=== PATIENT | male | born 1940 | race African-American/Black ===

== ENCOUNTER 2019-07-29 16:11 | Emergency (ER) | payer MEDICARE, OTHER ==
[~2019-07-29] VITALS: Ht 175.3 cm; Wt 76.2 kg
[2019-07-29 17:30] VITALS: BP 145/82
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
[2019-07-29 18:46] VITALS: BP 144/82
--- NOTE | 2019-07-29 18:46 | NUR ---
ELOPEMENT: Noted pt not being seen on room. Called for pt's name but received no response.
== END 2019-07-29 18:45 | disposition left against medical advice (07) ==
LOC: EMR 18:40
DX: R51 Headache (principal); Z53.21 Procedure and treatment not carried out due to patient leaving prior to being seen by health care provider
CPT/HCPCS: 70450; 99281